=== PATIENT | male | born 1995 | race Hispanic/Latino ===

== ENCOUNTER 2021-06-09 09:38 | Emergency (ER) | payer SELFPAY ==
[2021-06-09] MEDS ORDERED: FAMOTIDINE 20 MG/2 ML VIAL IV ONE (10:24)
[2021-06-09] MEDS ORDERED: MORPHINE 4 MG/ML SYR ONE (10:24)
[2021-06-09] MEDS ORDERED: NA CHLORIDE 0.9% 1,000 ML ONE (10:24)
[2021-06-09] MEDS ORDERED: ONDANSETRON 4 MG/2 ML VIAL ONE (10:24)
[2021-06-09 10:26] LABS: Absolute Lymphocytes (CBC) 1.7 K/uL (0.7-4.9); Hematocrit 48.1 % (39.6-49.0); Lymphocytes % 17.8 % (15.3-44.8); MPV 7.8 fL (7.6-11.3); RBC Red Blood Cell Count 5.47 M/uL (4.33-5.43)
[2021-06-09 11:03] LABS: ALT/SGPT 39 U/L (12-78); AST/SGOT 21 U/L (15-37); Albumin 4.4 g/dL (3.4-5.0); Alkaline Phosphatase 55 U/L (45-117); BUN Blood Urea Nitrogen 11 mg/dL (7-18); Bicarbonate 26 mmol/L (21-32); Bilirubin Direct 0.1 mg/dL (0-0.2); Bilirubin Total 0.5 mg/dL (0.2-1.0); Glucose Level 99 mg/dL (74-106); Lipase 45 U/L (73-393); Potassium 3.8 mmol/L (3.5-5.1); Protein, Total 8.1 g/dL (6.4-8.2); Sodium Level 136 mmol/L (136-145)
[2021-06-09 11:13] LABS: Troponin High Sensitivity < 3.00 pg/mL (<58.9)
--- NOTE | 2021-06-09 12:30 | ER ---
Nurse's Notes [facility] Name: Angel Bean Age: 25 yrs Sex: Male : 1995 Arrival Date: 06/09/2021 Time: 09:42 Bed 18 Private MD: Diagnosis: Chest pain, unspecified;Upper abdominal pain, unspecified;Vomiting;Acute gastritis;Gastritis, unspecified Presentation: 06/09 10:15 Chief complaint: Patient states: Midsternal/epigastric chest pain that started on ww Saturday with nausea and vomiting. Describes pain as burning and pressure that does not radiate. Coronavirus screen: Vaccine status: Patient reports being unvaccinated. Client denies travel out of the [place] in the last 14 days. Ebola Screen: Patient denies travel to an Ebola-affected area in the 21 days before illness onset. Initial Sepsis Screen: Does the patient meet any 2 criteria? No. Patient's initial sepsis screen is negative. Does the patient have a suspected source of infection? No. Patient's initial sepsis screen is negative. Risk Assessment: Do you want to hurt yourself or someone else? Patient reports no desire to harm self or others. Onset of symptoms was June 07, 2021. 10:15 Method Of Arrival: Ambulatory ww 10:15 Acuity: BECKA 3 ww Triage Assessment: 10:34 General: Appears in no apparent distress. Behavior is calm, cooperative. Pain: ww Complains of pain in xiphoid area. EENT: No signs and/or symptoms were reported regarding the EENT system. Neuro: Level of Consciousness is awake, alert, obeys commands, Oriented to person, place, time, situation, Moves all extremities. Speech is normal. Cardiovascular: Reports chest pain, Capillary refill < 3 seconds Patient's skin is warm and dry. Edema is absent. Respiratory: Airway is patent Respiratory effort is even, unlabored, Respiratory pattern is regular, symmetrical. GI: Abdomen is non-distended, Abd is soft and non tender Reports nausea, vomiting. : No signs and/or symptoms were reported regarding the genitourinary system. Derm: Skin is intact, is healthy with good turgor, Skin is pink, warm \T\ dry. Musculoskeletal: No signs and/or symptoms reported regarding the musculoskeletal system. Historical: - Allergies: 10:34 No Known Allergies; ww - Home Meds: 10:34 None [Active]; ww - PMHx: 10:34 None; ww - PSHx: 10:34 None; ww - Immunization history:: Adult Immunizations not immunized. - Social history:: Smoking status: Patient reports the use of cigarette tobacco products, smokes one pack cigarettes per day. Screenin:36 Abuse screen: Denies threats or abuse. Denies injuries from another. Nutritional ww screening: No deficits noted. Tuberculosis screening: No symptoms or risk factors identified. Fall Risk None identified. Assessment: 10:36 Reassessment: Patient appears in no apparent distress at this time. see triage ww assessment. 11:30 Reassessment: Patient appears in no apparent distress at this time. Patient and/or ww family updated on plan of care and expected duration. Pain level reassessed. Pain: Pain does not radiate. Pain began 2-3 days ago. Neuro: Level of Consciousness is awake, alert, obeys commands, Oriented to person, place, time, situation. Respiratory: Airway is patent Respiratory effort is even, unlabored. 12:29 Reassessment: Patient appears in no apparent distress at this time. No changes from ww previously documented assessment. Patient and/or family updated on plan of care and expected duration. Pain level reassessed. Patient states feeling better. Vital Signs: 10:15 BP 129 / 83; Pulse 65; Resp 16; Temp 98.6; Pulse Ox 100% on R/A; Weight 72.57 kg; ww Height 5 ft. 7 in. (170.18 cm); Pain 3/10; 11:00 BP 110 / 73; Pulse 63; Resp 16; Pulse Ox 100% ; ww 12:00 BP 114 / 75; Pulse 62; Resp 16; Pulse Ox 99% on R/A; ww 10:15 Body Mass Index 25.06 (72.57 kg, 170.18 cm) ww ED Course: 09:42 Patient arrived in ED. kz 10:01 Kannan Tello MD is Attending Physician. kdr 10:07 EKG done, by ED staff, reviewed by Kannan Tello MD. jw7 10:16 Brandi Busch, RN is Primary Nurse. ww 10:32 Basic Metabolic Panel Sent. ww 10:34 Triage completed. ww 10:34 Arm band placed on right wrist. ww 10:36 Inserted saline lock: 20 gauge in left antecubital area, using aseptic technique. Blood ww collected. Patient maintains SpO2 saturation greater than 95% on room air. 10:36 Patient has correct armband on for positive identification. Bed in low position. Call ww light in reach. accounting/finance tutor on. Pulse ox on. NIBP on. 12:41 No provider procedures requiring assistance completed. intact, bleeding controlled, No ww redness/swelling at site. Pressure dressing applied. Administered Medications: 10:25 Drug: NS 0.9% 1000 ml Route: IV; Rate: 1 bolus; Site: left antecubital; ww 10:26 Drug: morphine 4 mg Route: IVP; Site: left antecubital; ww 10:27 Drug: Pepcid (famotidine) 20 mg Route: IVP; Infused Over: 2 mins; Site: left ww antecubital; 10:31 Drug: Zofran (Ondansetron) 4 mg Route: IVP; Infused Over: 2 mins; Site: left ww antecubital; Outcome: 12:29 Discharge ordered by . kdr 12:41 Discharged to home ambulatory, with family. ww 12:41 Condition: stable 12:41 Discharge instructions given to patient, family, Instructed on discharge instructions, follow up and referral plans. no drinking with medication, medication usage, benefits of quitting smoking, safety practices, Demonstrated understanding of instructions, follow-up care, medications, Prescriptions given X 2. 12:42 Patient left the ED. ww Signatures: Kannan Tello MD MD kdr Wood, Whitney RN RN Judy Oropeza Kelly kz
--- NOTE | 2021-06-09 12:30 | EDPHYS ---
Physician Documentation [facility] Name: Angel Bean Age: 25 yrs Sex: Male : 1995 Arrival Date: 06/09/2021 Time: 09:42 Bed 18 Private MD: ED Physician Kannan Tello HPI: 06/09 11:09 This 25 yrs old Male presents to ER via Ambulatory with complaints of Chest kdr Pain, Vomiting. 11:09 The patient or guardian reports chest pain that is located primarily in the substernal kdr area. The pain does not radiate. Associated signs and symptoms: Pertinent positives: nausea, vomiting. The chest pain is described as aching, burning. Duration: The patient or guardian reports multiple episodes, that are intermittent, that wax and wane, with no pattern. Modifying factors: The symptoms are alleviated by nothing. the symptoms are aggravated by eating. Severity of pain: At its worst the pain was moderate severe just prior to arrival, in the emergency department the pain is unchanged. The patient has not experienced similar symptoms in the past. The patient has not recently seen a physician. Patient stated that yesterday he started to have some nausea vomiting and chest pain. He indicated that the chest pain started first. He has not had this kind of discomfort previously. Historical: - Allergies: 10:34 No Known Allergies; ww - Home Meds: 10:34 None [Active]; ww - PMHx: 10:34 None; ww - PSHx: 10:34 None; ww - Immunization history:: Adult Immunizations not immunized. - Social history:: Smoking status: Patient reports the use of cigarette tobacco products, smokes one pack cigarettes per day. ROS: 11:09 Constitutional: Negative for fever, chills, and weight loss, Eyes: Negative for injury, kdr pain, redness, and discharge, Neck: Negative for injury, pain, and swelling, Respiratory: Negative for shortness of breath, cough, wheezing, and pleuritic chest pain, Back: Negative for injury and pain, : Negative for injury, bleeding, discharge, and swelling, MS/Extremity: Negative for injury and deformity, Skin: Negative for injury, rash, and discoloration, Neuro: Negative for headache, weakness, numbness, tingling, and seizure activity. Psych: Negative for depression, anxiety, suicide ideation, homicidal ideation, and hallucinations, Allergy/Immunology: Negative for hives, rash, and allergies, Endocrine: Negative for neck swelling, polydipsia, polyuria, polyphagia, and marked weight changes, Hematologic/Lymphatic: Negative for swollen nodes, abnormal bleeding, and unusual bruising. 11:09 Cardiovascular: Positive for chest pain, Chest pain with nausea and vomiting, Negative for edema, orthopnea, palpitations. 11:09 Abdomen/GI: Positive for nausea and vomiting, Negative for constipation, abdominal cramps, abdominal distension, anorexia, dysphagia, hematemesis, black/tarry stool, rectal pain, rectal bleeding. Exam: 10:42 ECG was reviewed by the Attending Physician. kdr 11:09 Constitutional: This is a well developed, well nourished patient who is awake, alert, kdr and in no acute distress. Head/Face: Normocephalic, atraumatic. Eyes: Pupils equal round and reactive to light, extra-ocular motions intact. Lids and lashes normal. Conjunctiva and sclera are non-icteric and not injected. Cornea within normal limits. Periorbital areas with no swelling, redness, or edema. Neck: Trachea midline, no thyromegaly or masses palpated, and no cervical lymphadenopathy. Supple, full range of motion without nuchal rigidity, or vertebral point tenderness. No Meningismus. Chest/axilla: Normal chest wall appearance and motion. Nontender with no deformity. No lesions are appreciated. Cardiovascular: Regular rate and rhythm with a normal S1 and S2. No gallops, murmurs, or rubs. Normal PMI, no JVD. No pulse deficits. Respiratory: Lungs have equal breath sounds bilaterally, clear to auscultation and percussion. No rales, rhonchi or wheezes noted. No increased work of breathing, no retractions or nasal flaring. Back: No spinal tenderness. No costovertebral tenderness. Full range of motion. Skin: Warm, dry with normal turgor. Normal color with no rashes, no lesions, and no evidence of cellulitis. MS/ Extremity: Pulses equal, no cyanosis. Neurovascular intact. Full, normal range of motion. Neuro: Awake and alert, GCS 15, oriented to person, place, time, and situation. Cranial nerves II-XII grossly intact. Motor strength 5/5 in all extremities. Sensory grossly intact. Cerebellar exam normal. Normal gait. Psych: Awake, alert, with orientation to person, place and time. Behavior, mood, and affect are within normal limits. 11:09 Abdomen/GI: Inspection: abdomen appears normal, Bowel sounds: active, all quadrants, Palpation: soft, mild abdominal tenderness, in the epigastric area. Vital Signs: 10:15 BP 129 / 83; Pulse 65; Resp 16; Temp 98.6; Pulse Ox 100% on R/A; Weight 72.57 kg; ww Height 5 ft. 7 in. (170.18 cm); Pain 3/10; 11:00 BP 110 / 73; Pulse 63; Resp 16; Pulse Ox 100% ; ww 12:00 BP 114 / 75; Pulse 62; Resp 16; Pulse Ox 99% on R/A; ww 10:15 Body Mass Index 25.06 (72.57 kg, 170.18 cm) ww MDM: 11:09 Data reviewed: vital signs, nurses notes, lab test result(s), radiologic studies. kdr Counseling: I had a detailed discussion with the patient and/or guardian regarding: the historical points, exam findings, and any diagnostic results supporting the discharge/admit diagnosis, lab results, radiology results. 12:29 Patient medically screened. kdr 06/09 10:11 Order name: Basic Metabolic Panel kdr 06/09 10:11 Order name: CBC with Diff; Complete Time: 10:57 kdr 06/09 10:11 Order name: Hepatic Function; Complete Time: 12:06 kdr 06/09 10:11 Order name: Lipase; Complete Time: 12:06 kdr 06/09 10:11 Order name: Troponin High Sensitivity; Complete Time: 12:06 kdr 06/09 10:11 Order name: Basic Metabolic Panel; Complete Time: 12:06 EDMS 06/09 10:11 Order name: IV Saline Lock; Complete Time: 10:16 kdr 06/09 10:11 Order name: Labs collected and sent; Complete Time: 10:16 kdr 06/09 10:11 Order name: EKG Strip; Complete Time: 10:16 kdr EC:42 Rate is 66 beats/min. Rhythm is regular, Sinus Rhythm with No ectopy. QRS [place] is kdr Normal. Right axis deviation noted. SD interval is normal. QRS interval is normal. QT interval is normal. Clinical impression: NSR w/ Non-specific ST/T Changes. Administered Medications: 10:25 Drug: NS 0.9% 1000 ml Route: IV; Rate: 1 bolus; Site: left antecubital; ww 10:26 Drug: morphine 4 mg Route: IVP; Site: left antecubital; ww 10:27 Drug: Pepcid (famotidine) 20 mg Route: IVP; Infused Over: 2 mins; Site: left ww antecubital; 10:31 Drug: Zofran (Ondansetron) 4 mg Route: IVP; Infused Over: 2 mins; Site: left ww antecubital; Disposition Summary: 06/09/21 12:29 Discharge Ordered Location: Home kdr Problem: new kdr Symptoms: have improved kdr Condition: Stable kdr Diagnosis - Chest pain, unspecified kdr - Upper abdominal pain, unspecified kdr - Vomiting kdr - Acute gastritis kdr - Gastritis, unspecified kdr Followup: kdr - With: Private Physician - When: 2 - 3 days - Reason: If symptoms return, Further diagnostic work-up, Recheck today's complaints, Continuance of care, Re-evaluation by your physician Discharge Instructions: - Discharge Summary Sheet kdr - Nausea and Vomiting, Adult, [id number] kdr - Nonspecific Chest Pain, Adult, [id number] kdr - Vomiting, Adult kdr Forms: - Medication Reconciliation Form kdr - Thank You Letter kdr Prescriptions: - Pepcid 20 mg Oral Tablet - take 1 tablet by ORAL route every 12 hours for 10 days; 20 tablet; Refills: 0, kdr Product Selection Permitted - promethazine 25 mg Oral Tablet - take 1 tablet by ORAL route every 6 hours As needed; 20 tablet; Refills: 0, kdr Product Selection Permitted Signatures: Dispatcher [employer] Kannan Banda MD MD kdr Brandi Busch, RN RN ww
[2021-06-09 12:48] VITALS: TEMP 98.6
[2021-06-09 12:50] VITALS: BP 114/75; O2SAT 99
== END 2021-06-09 12:42 | disposition home or self-care (01) ==
LOC: ER 09:38
DX: R07.9 Chest pain, unspecified (principal); K29.00 Acute gastritis without bleeding; R10.13 Epigastric pain; R11.10 Vomiting, unspecified; F17.210 Nicotine dependence, cigarettes, uncomplicated
CPT/HCPCS: 36415; 80048; 80076; 83690; 84484; 85025; 93005; 96374; 96375; 99285; J2405; J7030

== ENCOUNTER 2024-07-24 11:35 | Emergency (ER) | payer SELFPAY ==
--- NOTE | 2024-07-24 13:46 | RAD REPORT ---
EXAM: XR Hand Right 3 View HISTORY: PAIN Bed Name: [id number] COMPARISON: None TECHNIQUE: 3 radiographic views of the RIGHT hand submitted. FINDINGS: No evidence of acute fracture or dislocation. Joint alignment is maintained. No soft tissu e swelling is seen.. No significant degenerative changes are present. IMPRESSION: No significant bone or joint abnormality.
--- NOTE | 2024-07-24 14:23 | ER ---
Nurse's Notes [facility] Name: Angel Bean Age: 28 yrs Sex: Male : 1995 Arrival Date: 07/24/2024 Time: 11:35 Bed DX2 Private MD: Diagnosis: Contusion of right hand Presentation: 07/24 12:03 Chief complaint: Patient states: Hand injury at work 1 hour ago. Pt c/o pain to right ld1 hand. Coronavirus screen: At this time, the client does not indicate any symptoms associated with coronavirus-19. Ebola Screen: No symptoms or risks identified at this time. Initial Sepsis Screen: Does the patient meet any 2 criteria? No. Patient's initial sepsis screen is negative. Does the patient have a suspected source of infection? No. Patient's initial sepsis screen is negative. Risk Assessment: Do you want to hurt yourself or someone else? Patient reports no desire to harm self or others. Onset of symptoms was July 24, 2024. 12:03 Method Of Arrival: Ambulatory ld1 12:03 Acuity: BECKA 4 ld1 Triage Assessment: 12:03 General: Appears in no apparent distress. uncomfortable, Behavior is calm, cooperative, ld1 appropriate for age. Pain: Complains of pain in right hand Pain does not radiate. Pain currently is 10 out of 10 on a pain scale. Quality of pain is described as throbbing. EENT: No signs and/or symptoms were reported regarding the EENT system. Neuro: Level of Consciousness is awake, alert, obeys commands, Oriented to person, place, time, situation. Cardiovascular: Capillary refill < 3 seconds Patient's skin is warm and dry. Respiratory: Airway is patent Respiratory effort is even, unlabored. GI: Abdomen is flat, non-distended. : No signs and/or symptoms were reported regarding the genitourinary system. Derm: No signs and/or symptoms reported regarding the dermatologic system. Musculoskeletal: Reports pain in right hand. Injury Description: smashed right hand at work. Historical: - Allergies: 12:03 No Known Allergies; ld1 - Home Meds: 12:03 None [Active]; ld1 - PMHx: 12:03 None; ld1 - PSHx: 12:03 None; ld1 - Immunization history:: Adult Immunizations up to date. - Infectious Disease History:: Denies. - Social history:: Smoking status: Patient denies any tobacco usage or history of. - Family history:: not pertinent. Screenin:28 [facility] ED Fall Risk Assessment (Adult) History of falling in the last 3 months, ld1 including since admission No falls in past 3 months (0 pts) Confusion or Disorientation No (0 pts) Intoxicated or Sedated No (0 pts) Impaired Gait No (0 pts) Mobility Assist Device Used No (0 pt) Altered Elimination No (0 pt) Score/Fall Risk Level 0 - 2 = Low Risk Oriented to surroundings, Hourly rounding (assess needs \T\ fall precautionary measures) done. Abuse screen: Denies threats or abuse. Denies injuries from another. Nutritional screening: No deficits noted. Tuberculosis screening: No symptoms or risk factors identified. Assessment: 14:28 Reassessment: Patient appears in no apparent distress at this time. No changes from ld1 previously documented assessment. Patient and/or family updated on plan of care and expected duration. Pain level reassessed. Patient is alert, oriented x 3, equal unlabored respirations, skin warm/dry/pink. Vital Signs: 12:02 Pulse 77; Resp 18; Pulse Ox 95% on R/A; Weight 97.52 kg; Height 5 ft. 7 in. ; Pain ld1 1010; 12:02 BP 150 / 99; ld1 14:28 BP 143 / 84; Pulse 81; Resp 18; Pulse Ox 97% on R/A; ld1 12:02 Body Mass Index 33.67 (97.52 kg, 170.18 cm) ld1 12:02 Pain Scale: Adult ld1 ED Course: 11:38 Patient arrived in ED. im 12:00 Lionel Mcfadden MD is Attending Physician. rt 12:03 Triage completed. ld1 12:03 Arm band placed on right wrist. ld1 12:53 Hand Right 3 View XRAY In Process Unspecified. EDMS 14:28 Patient has correct armband on for positive identification. ld1 14:28 No provider procedures requiring assistance completed. Patient did not have IV access ld1 during this emergency room visit. Administered Medications: No medications were administered Medication: 14:28 VIS not applicable for this client. ld1 Outcome: 14:23 Discharge ordered by . rt 14:28 Discharged to home ambulatory, ld1 14:28 Condition: good 14:28 Discharge instructions given to patient, Instructed on discharge instructions, follow up and referral plans. Demonstrated understanding of instructions, follow-up care, 14:29 Patient left the ED. ld1 Signatures: Dispatcher [employer] Mely Cervantes RN RN ld1 Lionel Mcfadden MD MD rt Mendoza, Itzel
--- NOTE | 2024-07-24 14:23 | EDPHYS ---
Physician Documentation [facility] Name: Angel Bean Age: 28 yrs Sex: Male : 1995 Arrival Date: 07/24/2024 Time: 11:35 Bed DX2 Private MD: ED Physician Lionel Mcfadden HPI: 07/24 16:15 This 28 yrs old Male presents to ER via Ambulatory with complaints of Hand rt Injury - Left. 16:15 Patient presents to the ED with an injury to the right hand. The patient reports that rt his hand was crushed between a forklift and a lid just prior to arrival. Reports a contusion to the hand. Denies other injury, the complaints, symptoms are moderate severity, aching nature, nonradiating, no other aggravating or alleviating factors.. Historical: - Allergies: 12:03 No Known Allergies; ld1 - Home Meds: 12:03 None [Active]; ld1 - PMHx: 12:03 None; ld1 - PSHx: 12:03 None; ld1 - Immunization history:: Adult Immunizations up to date. - Infectious Disease History:: Denies. - Social history:: Smoking status: Patient denies any tobacco usage or history of. - Family history:: not pertinent. ROS: 16:15 Constitutional: Negative for fever, chills, and weight loss, Skin: Negative for injury, rt rash, and discoloration, Neuro: Negative for headache, weakness, numbness, tingling, and seizure, 16:15 MS/extremity: Positive for contusion, pain, Exam: 16:15 Constitutional: This is a well developed, well nourished patient who is awake, alert, rt and in no acute distress. Head/Face: Normocephalic, atraumatic. Skin: Warm, dry with normal turgor. Normal color with no rashes, no lesions, and no evidence of cellulitis. Neuro: Awake and alert, GCS 15, oriented to person, place, time, and situation. Cranial nerves II-XII grossly intact. Motor strength 5/5 in all extremities. Sensory grossly intact. Cerebellar exam normal. Normal gait. 16:15 Musculoskeletal/extremity: Abrasion with contusion of distal right hand, good bread molder strength, no laceration, pulses, motor, sensation are intact. Vital Signs: 12:02 Pulse 77; Resp 18; Pulse Ox 95% on R/A; Weight 97.52 kg; Height 5 ft. 7 in. ; Pain ld1 10/10; 12:02 BP 150 / 99; ld1 14:28 BP 143 / 84; Pulse 81; Resp 18; Pulse Ox 97% on R/A; ld1 12:02 Body Mass Index 33.67 (97.52 kg, 170.18 cm) ld1 12:02 Pain Scale: Adult ld1 MDM: 12:04 Medical Screening Exam initiated rt 16:15 Differential diagnosis: Fracture, contusion. Data reviewed: vital signs, nurses notes. rt 16:29 Independent interpretation of the following test(s) in the Emergency Department X-Ray: rt My interpretation is No fracture seen on my interpretation of x-ray images. Counseling: I had a detailed discussion with the patient and/or guardian regarding the historical points, exam findings, and any diagnostic results supporting the discharge/admit diagnosis, radiology results, the need for outpatient follow up. Response to treatment: the patient's symptoms have mildly improved after treatment. 07/24 12:08 Order name: Hand Right 3 View XRAY; Complete Time: 14:04 rt Administered Medications: No medications were administered Disposition Summary: 07/24/24 14:23 Discharge Ordered Notes: Location: Home rt Problem: new rt Symptoms: have improved rt Condition: Stable rt Diagnosis - Contusion of right hand rt Followup: rt - With: Private Physician - When: 2 - 3 days - Reason: Discharge Instructions: - Discharge Summary Sheet rt - Contusion rt Forms: - Medication Reconciliation Form rt - Antibiotic Education rt - Prescription Opioid Use rt - Patient Portal Instructions rt - Leadership Thank You Letter rt Signatures: Dispatcher [employer] Mely Cervantes, RAHEEM RN ld1 Lionel Mcfadden MD MD rt
[2024-07-24 14:36] VITALS: BP 143/84; O2SAT 97
== END 2024-07-24 14:29 | disposition home or self-care (01) ==
LOC: ER 11:35
DX: S60.221A Contusion of right hand, initial encounter (principal)
CPT/HCPCS: 99282